=== PATIENT | female | born 1995 | race Caucasian/White ===

== ENCOUNTER 2016-09-19 08:43 | Outpatient (CLI) | payer MEDICAID ==
[2016-09-21 20:01] LABS: TEST RESULT REPORT (())
== END 2016-09-19 08:44 | disposition home or self-care (01) ==
LOC: LAB.F 08:43
PROVIDERS: ATTEND Nurse Practitioner Family
DX: Z23 Encounter for immunization (principal)
CPT/HCPCS: 36415; 81599; 86787

== ENCOUNTER 2016-09-28 12:49 | Outpatient (CLI) | payer MEDICAID | END 2016-09-28 12:50 | disposition home or self-care (01) | LOC: LAB.F 12:49 | PROVIDERS: ATTEND Nurse Practitioner Family | DX: Z23 Encounter for immunization (principal) | CPT/HCPCS: 36415; 86317 ==

== ENCOUNTER 2017-06-14 13:47 | Outpatient (CLI) | payer MEDICAID ==
--- NOTE | 2017-06-14 18:23 | XRAY Report ---
THREE VIEW CERVICAL SPINE: 06/14/2017 CLINICAL INDICATION: Neck pain. FINDINGS: Frontal, lateral, odontoid views of the cervical spine demonstrate straightening of the normal cervical lordosis. The vertebral bodies demonstrate normal height. The disk spaces are preserved. There is no evidence of fracture or subluxation. IMPRESSION: STRAIGHTENING OF THE NORMAL CERVICAL LORDOSIS. OTHERWISE, NORMAL CERVICAL SPINE. TD: 06/14/2017 18:22
== END 2017-06-14 13:48 | disposition home or self-care (01) ==
LOC: DI.S 13:47
PROVIDERS: ATTEND Nurse Practitioner Family
DX: M54.2 Cervicalgia (principal)
CPT/HCPCS: 72040